=== PATIENT | male | born 1980 | race Caucasian/White ===

== ENCOUNTER 2025-07-21 03:16 | Emergency (ER) | payer MEDICAID ==
[~2025-07-21] VITALS: Ht 175.3 cm; Wt 82.0 kg
[2025-07-21 03:28] VITALS: O2SAT 97
[2025-07-21 04:34] LABS: BASOPHILS % 1.2 % (0.0-2.0); EOSINOPHILS % 1.7 % (0.0-5.0); HEMATOCRIT. 50.6 % (42.0-52.0); HEMOGLOBIN. 17.4 g/dL (14.0-18.0); LYMPHOCYTES % 33.7 % (20.0-50.0); MEAN PLATELET VOLUME 8.2 fl (7.4-10.4); MONOCYTES % 11.8 % (2.0-8.0); NEUTROPHILS % 51.6 % (40.0-76.0); PLATELET 198 x1000/uL (130-400); RED BLOOD CELL COUNT 5.61 mill/uL (4.7-6.1); RED CELL DISTRIBUTION WIDTH 16.9 % (11.6-14.6)
[2025-07-21 04:58] LABS: CREATININE 0.7 mg/dL (0.6-1.3)
[2025-07-21 04:59] LABS: UREA NITROGEN BLOOD 6 mg/dL (9-23)
[2025-07-21 05:00] LABS: ASPARTATE AMINOTRANSFERASE 138 IU/L (<34)
[2025-07-21 05:01] LABS: BILIRUBIN DIRECT 0.6 mg/dL (<=3.0); BILIRUBIN TOTAL 1.8 mg/dL (0.1-1.0); PROTEIN TOTAL 6.9 g/dL (6.0-8.3)
[2025-07-21 05:19] LABS: *AMPHETAMINES SCREEN URINE PRESUMPTIVE POSITIVE (NEGATIVE); *BARBITURATES SCREEN URINE PRESUMPTIVE POSITIVE (NEGATIVE); *BENZODIAZEPINES SCREEN URINE PRESUMPTIVE POSITIVE (NEGATIVE); *COCAINE SCREEN URINE NEGATIVE (NEGATIVE); CANNABINOID URINE SCREEN NEGATIVE (NEGATIVE); ECSTASY MDMA SCREEN URINE CONF.TEST INDICATED (NEGATIVE); METHADONE URINE SCREEN NEGATIVE (NEGATIVE); OPIATES URINE SCREEN NEGATIVE (NEGATIVE); PHENCYCLIDINE URINE SCREEN NEGATIVE (NEGATIVE)
[2025-07-21] MEDS: POTASSIUM CHLORIDE 20MEQ/PACKET PO NR (05:50)
[2025-07-21] MEDS: SODIUM CHLORIDE 0.9% 1,000 ML IV ONE (05:50)
[2025-07-21] MEDS ORDERED: HYDROXYZINE 25MG TABLET PO PRN (11:00)
[2025-07-21] MEDS: BUPROPION HCL 150MG TABLET XL 24HR PO SCH (11:00)
[2025-07-21 12:04] VITALS: BP 153/91; PULSE 96; RESP 16; TEMP 36.8; O2SAT 98
== END 2025-07-21 12:35 ==
LOC: ER 03:16
DX: R45.851 Suicidal ideations (principal); F10.90 Alcohol use, unspecified, uncomplicated; F33.1 Major depressive disorder, recurrent, moderate; F41.9 Anxiety disorder, unspecified; Y90.6 Blood alcohol level of 120-199 mg/100 ml; Z79.899 Other long term (current) drug therapy; Y90.9 Presence of alcohol in blood, level not specified
CPT/HCPCS: 80076; 80305; 80048; 80307; 80329; 80320; 82962; 85025; 36415; 96360; 99285; 87426; Z7610 ×2; G0480